=== PATIENT | male | born 1990 | race Caucasian/White ===

== ENCOUNTER → 2017-03-28 | Outpatient (CLI) | payer OTHER ==
[2017-03-29 09:04] LABS: HEP B SURF. AB 19.6 mIU/mL (0.0-10.0)
== END | disposition home or self-care (01) ==
LOC: LAB 11:46
PROVIDERS: ATTEND Family Medicine
DX: Z11.59 Encounter for screening for other viral diseases (principal)
CPT/HCPCS: 36415; 86706; 86735; 86762; 86765; 86787; 87340